=== PATIENT | male | born 1980 | race Caucasian/White ===

== ENCOUNTER 2016-11-11 16:22 | Emergency (ER) | payer BC ==
--- NOTE | 2016-11-11 17:13 | DIAGNOSTIC IMAGING REPORT ---
PROCEDURE: US VENOUS - RIGHT EXT INDICATION: SWELLING TECHNIQUE: Duplex sonography of the deep venous system in the right lower extremity was performed. Compression and augmentation techniques were used. COMPARISON: None. FINDINGS: Each interrogated segment of deep vein from the common femoral vein into the calf veins demonstrates normal compressibility, augmentation and/or color Doppler flow without filling defect. No evidence of significant soft-tissue edema, soft-tissue mass or cyst. IMPRESSION: 1. No deep venous thrombosis in the right lower extremity.
--- NOTE | 2016-11-11 17:21 | DIAGNOSTIC IMAGING REPORT ---
PROCEDURE: XR ANKLE 3 OR 4 VIEWS - RIGHT INDICATION: TRAUMA/INJURY TECHNIQUE: Four views of the right ankle. COMPARISON: None. FINDINGS: Normal mineralization. No fractures. Ankle mortise intact. Normal osseous alignment. Small anterior tibiotalar joint effusion. No suspicious soft-tissue calcification or radiodense foreign bodies. Achilles tendon appears grossly normal. Mild lateral periarticular soft tissue swelling. IMPRESSION: 1. Intact right ankle. 2. Minor anterior tibiotalar joint effusion and slight lateral soft tissue swelling suggestive of sprain.
--- NOTE | 2016-11-11 17:47 | ED ORDER SUMMARY ---
..... Patient: CHINTAN VILLANUEVA OrderSheet [facility] VisitID: [id number] [place] [address] 36y, M Registration Date/Time: 11/11/2016 ORDER SHEET Weight: 109.3 kg (stated) Allergies: No Known Drug Allergy GENERAL ORDERS: Ankle 3 or 4V Right Urgent (16:44 11/11/2016 JCoates) (Ack 16:45 Padmini) (18:00 Mireya R.NCisco) US Venous Right ( Duplex ultrasound, right lower leg. Rule out DVT. Thank you.) Urgent (16:44 11/11/2016 JCoates) (Ack 16:45 Padmini) (17:09 Heriberto) MEDICATION ORDERS: IV FLUIDS: ORDER SHEET NOTES: [Electronically signed by Radha Ibrahim R.N. (18:00 11/11/2016)] [Electronically signed by Theo Meredith (18:59 11/11/2016)] [Electronically locked/signed by Radha Ibrahim R.N. (18:00 11/11/2016)]
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
--- NOTE | 2016-11-11 17:47 | ED ORDER SUMMARY ---
..... Patient: CHINTAN VILLANUEVA OrderSheet [facility] VisitID: [id number] [place] [address] 36y, M Registration Date/Time: 11/11/2016 ORDER SHEET Weight: 109.3 kg (stated) Allergies: No Known Drug Allergy GENERAL ORDERS: Ankle 3 or 4V Right Urgent (16:44 11/11/2016 JCoates) (Ack 16:45 Padmini) (18:00 Mireya R.NCisco) US Venous Right ( Duplex ultrasound, right lower leg. Rule out DVT. Thank you.) Urgent (16:44 11/11/2016 JCoates) (Ack 16:45 Padmini) (17:09 Heriberto) MEDICATION ORDERS: IV FLUIDS: ORDER SHEET NOTES: [Electronically signed by Radha Ibrahim R.N. (18:00 11/11/2016)] [Electronically signed by Theo Meredith (18:59 11/11/2016)] [Electronically locked/signed by Radha Ibrahim R.N. (18:00 11/11/2016)]
--- NOTE | 2016-11-11 17:47 | ED CLINICAL REPORT ---
Clinical Report - Physicians/Mid Levels [facility] [address] [place] [address] 11/11/2016 16:25 [id number] Time Seen: 16:32 Nov 11 2016. Arrived- By private vehicle. Historian- patient. HISTORY OF PRESENT ILLNESS Chief Complaint: LOWER EXTREMITY PAIN and SWELLING. This started today and is still present. It was abrupt in onset. Severity is described as being mild. The quality is noted to be aching. Symptoms located in the area of the right ankle and right leg. The patient has had swelling, but not had redness. No difficulty walking. No sensory loss or motor loss. ( Patient twisted his right ankle about 10 days ago. Since then its continued to be swollen around the ankle and mildly painful despite taking ibuprofen. During this time. He also had 21.5 hour flights to [place]. This morning when he woke up he had some mild aching pain in the back of his lower leg. His , who is a nurse, thought that his lower leg was swollen more than usual and recommended that he come in to be evaluated for a DVT. He denies a previous history of DVT. No family history of DVTs or PEs. Denies history of hypercoagulable disease. No recent surgeries.). Patient notes a recent injury. REVIEW OF SYSTEMS No cough, chest pain, difficulty breathing, fever or abdominal pain. No vomiting or diarrhea. All systems otherwise negative, except as recorded above. PAST HISTORY See nurses notes. No history of DVT, heart disease, lung disease, renal disease or diabetes mellitus. No risk factors for pulmonary embolism/DVT. SOCIAL HISTORY Never smoker. No alcohol use or drug use. ADDITIONAL NOTES The nursing notes have been reviewed. PHYSICAL EXAM Appearance: Oriented X3. No acute distress. Eyes: Pupils equal, round and reactive to light. Eyes normal inspection. ENT: Ears normal. Nose normal. Pharynx normal. Neck: Normal inspection. Neck supple. No JVD. CVS: Normal heart rate and rhythm. Heart sounds normal. Respiratory: No respiratory distress. Breath sounds normal. Back: No tenderness. ROM normal. Skin: Skin intact. Skin warm and dry. Normal skin color. Normal skin turgor. Extremities: Right ankle: mild tenderness and swelling localized to the lateral ligaments. No ligamentous laxity present. No joint effusion. No erythema, laceration, abrasion, ecchymosis or puncture wound. No foreign body or deformity. No limitation in ROM. Lower extremities exhibit normal ROM. No lower extremity edema. No lower extremity edema. No calf tenderness. Extremities otherwise negative. Neuro: Oriented X 3. No motor deficit. LABS, X-RAYS, AND EKG Rt Ankle X-ray: No fracture. Joint spaces normal. Soft tissue swelling. Moderate degenerative joint disease. Views: 3 view ankle series. Technique: good. The X-rays were interpreted by the radiologist. Lower Extremity Sonography: Negative exam. No compression abnormality noted. Vessels patent. Indication for study: extremity pain and swelling. Study type: utilized duplex sonography. The exam was performed by a earth science technician. The study was not limited. The study was interpreted by the radiologist. PROGRESS AND PROCEDURES Course of Care: 16:49 11/11/16. Patient stable. I can't really appreciate any posterior lower leg pain or edema. Despite this, he is at slightly increased risk for DVT based on his decreased mobility while injured and his short recent air travel. We'll go ahead and get a ultrasound to rule out DVT. We'll also get a x-ray of the ankle while were added to look for avulsion-type injuries. 17:02 11/11/16. Duplex ultrasound negative for DVT. Disposition: Discharged. Condition: good and stable. CLINICAL IMPRESSION Muscle strain of the posterior aspect of the right lower leg. Sprain of the talofibular ligament of the right ankle. Clinical picture does not suggest deep venous thrombosis. INSTRUCTIONS Elevate affected areas above chest level for three days as needed and until better. You may walk and bear weight as tolerated. Rest for two days. No dietary restrictions. Warnings: GENERAL WARNINGS: Return or contact your physician immediately if your condition worsens or changes unexpectedly, if not improving as expected, or if other problems arise. Specifically return if problem worsens. OTC Medications: Motrin (available over the counter): take according to label instructions. Follow-up: Follow up with your doctor in one week if not well. Understanding of the discharge instructions verbalized by patient. (Electronically signed by Theo Meredith, 11/11/2016 18:59)
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
--- NOTE | 2016-11-11 18:59 | ED DISCHARGE INSTRUCTIONS ---
Patient: CHINTAN VILLANUEVA General Instructions [facility] VisitID: [id number] [place] [address] 36y, M Registration Date/Time: 11/11/2016 Muscle strain of the posterior aspect of the right lower leg. Sprain of the talofibular ligament of the right ankle. INSTRUCTIONS Elevate affected areas above chest level for three days as needed and until better. You may walk and bear weight as tolerated. Rest for two days. No dietary restrictions. Warnings: GENERAL WARNINGS: Return or contact your physician immediately if your condition worsens or changes unexpectedly, if not improving as expected, or if other problems arise. Specifically return if problem worsens. OTC Medications: Motrin (available over the counter): take according to label instructions. Follow-up: Follow up with your doctor in one week if not well. Understanding of the discharge instructions verbalized by patient. ADDITIONAL INFORMATION Muscle Strain,Extremity A MUSCLE STRAIN is a stretching and tearing of muscle fibers. This causes pain, especially with motion of that muscle. There may also be some swelling and bruising. Home Care: 1) Keep the injured area raised to reduce pain and swelling. This is especially important during the first 48 hours. 2) Make an ice pack (ice cubes in a plastic bag, wrapped in a towel) and apply for 20 minutes every 1-2 hours the first day. You should continue with ice packs 3-4 times a day for the second and third days. Unless otherwise instructed, on the fourth day you may begin hot soaks or hot packs (small towel soaked in hot water) 3-4 times a day while you gently exercise the involved area. 3) You may use acetaminophen (Tylenol) or ibuprofen (Motrin, Advil) to control pain, unless another medicine was prescribed. [ NOTE : If you have chronic liver or kidney disease or ever had a stomach ulcer or GI bleeding, talk with your doctor before using these medicines.] 4) For LEG STRAINS: If CRUTCHES have been recommended, do not bear full weight on the injured leg until you can do so without pain. You may return to sports when you are able to hop and run on the injured leg without pain. Follow Up with your doctor or this facility if you are not improving within the next five days. Get Prompt Medical Attention if any of the following occur: -- Fingers or toes become swollen, cold, blue, numb or tingly -- Pain or swelling increases You have been given the following additional information: Muscle Strain, Extremity You may walk and bear weight as tolerated. Rest for two days. (Electronically signed by Theo Meredith, 11/11/2016 18:59)
--- NOTE | 2016-11-11 18:59 | ED MAR SUMMARY ---
..... Medication Administration Record [facility] [address] [place], [place] [id number] Patient: CHINTAN VILLANUEVA Visit ID: [id number] 36y, M Weight: 109.3 kg Height/Length: 72 in BMI: 32.7 ALLERGIES: No Known Drug Allergy
--- NOTE | 2016-11-11 18:59 | ED MED RECONCILIATION SUMMARY ---
Patient: CHINTAN VILLANUEVA Medication Reconciliation Report [facility] VisitID: [id number] [address] [place] [address] 36y, M Registration Date/Time: 11/11/2016 Weight: 109.3 kg Height/Length: 72 in. BMI: 32.7 ALLERGIES: No Known Drug Allergy The patient's Home Medications are listed below: THE FOLLOWING MEDICATIONS NEED TO BE RECONCILED: Ibuprofen Oral The source(s) of the original Home Medication information: Not obtained. The following Medications were given to the patient in the Emergency Department: None. The following Medications were prescribed to the patient: Motrin (available over the counter): take according to label instructions. -- Theo Meredith
--- NOTE | 2016-11-11 18:59 | ED MAR SUMMARY ---
..... Medication Administration Record [facility] [address] [place], [place] [id number] Patient: CHINTAN VILLANUEVA Visit ID: [id number] 36y, M Weight: 109.3 kg Height/Length: 72 in BMI: 32.7 ALLERGIES: No Known Drug Allergy
--- NOTE | 2016-11-11 18:59 | ED MED RECONCILIATION SUMMARY ---
Patient: CHINTAN VILLANUEVA Medication Reconciliation Report [facility] VisitID: [id number] [address] [place] [address] 36y, M Registration Date/Time: 11/11/2016 Weight: 109.3 kg Height/Length: 72 in. BMI: 32.7 ALLERGIES: No Known Drug Allergy The patient's Home Medications are listed below: THE FOLLOWING MEDICATIONS NEED TO BE RECONCILED: Ibuprofen Oral The source(s) of the original Home Medication information: Not obtained. The following Medications were given to the patient in the Emergency Department: None. The following Medications were prescribed to the patient: Motrin (available over the counter): take according to label instructions. -- Theo Meredith
== END 2016-11-11 17:45 | disposition home or self-care (01) ==
LOC: ED SRH 16:22
DX: S86.111A Strain of other muscle(s) and tendon(s) of posterior muscle group at lower leg level, right leg, initial encounter (principal); S93.491A Sprain of other ligament of right ankle, initial encounter; X50.1XXA Overexertion from prolonged static or awkward postures, initial encounter; Y93.9 Activity, unspecified; Y99.9 Unspecified external cause status; Y92.9 Unspecified place or not applicable